=== PATIENT | male | born 1955 | race Hispanic/Latino ===

== ENCOUNTER 2017-01-10 08:52 | Outpatient (CLI) | payer BC ==
[2017-01-10 10:09] LABS: #Basophils 0.1 thou/uL (0.0-0.2); #Eosinphils 0.5 thou/uL (0.0-0.7); #Lymphocytes 1.9 thou/uL (1.20-3.40); #Monocytes 0.3 thou/uL (0.11-0.59); %Basophils 1.5 % (0.0-1.0); %Eosinophils 8.5 % (0.0-10.0); %Lymphocytes 32.4 % (21.0-51.0); %Monocytes 5.7 % (0.0-10.0); Hematocrit 46.9 % (42.0-52.0); Mean Platelet Volume 7.4 fL (7.4-10.4); Red Blood Cell (RBC) Count 4.85 mill/uL (4.70-6.10); White Blood Cell (WBC) Count 5.8 thou/uL (4.8-10.8)
[2017-01-10 10:15] LABS: Prothrombin Time 12.6 SEC (12.0-14.7)
[2017-01-10 10:28] LABS: Anion Gap 13 mmol/L (10-20); BUN (Urea Nitrogen) 17 mg/dL (8.4-25.7); Calc. Creatinine Clearance 0 mL/min (70-130); Calcium 9.1 mg/dL (7.8-10.44); Carbon Dioxide 24 mmol/L (22-29); Chloride 106 mmol/L (98-107); Estimated GFR-MDRD Greater than 90
--- NOTE | 2017-01-11 10:01 | EKG ---
Test Reason : PREOP Blood Pressure : / mmHG Vent. Rate : 058 BPM Atrial Rate : 058 BPM P-R Int : 170 ms QRS Dur : 080 ms QT Int : 416 ms P-R-T Axes : 058 -01 -03 degrees QTc Int : 408 ms Sinus bradycardia Minimal voltage criteria for LVH, may be normal variant Borderline ECG When compared with ECG of 20-FEB-2016 11:09, No significant change was found Confirmed by OSWALD SCHAEFER ([id number]) on 01/11/2017 10:00:35 AM Referred By: PARAMJIT Confirmed By:OSWALD SCHAFEER
== END 2017-01-10 08:53 | disposition home or self-care (01) ==
LOC: LABBT 08:52
PROVIDERS: ATTEND Orthopaedic Surgery
DX: Z01.818 Encounter for other preprocedural examination (principal); M25.511 Pain in right shoulder; Z96.611 Presence of right artificial shoulder joint
CPT/HCPCS: 80048; 85025; 85610; 87081; 93005; 93010

== ENCOUNTER 2017-01-13 14:00 | Inpatient (IN) | payer BC ==
[2017-01-10 09:33] VITALS: BMI 28.0
[2017-01-20] MEDS ORDERED: Midazolam HCl 2 mg/2 ml Vial ONE (07:54)
[2017-01-20] MEDS ORDERED: Fentanyl 100 MCG/2 ML VIAL ONE ×2 (07:54→08:55)
[2017-01-20] MEDS ORDERED: Sodium Chloride 0.9% 100 ML ONE (08:01)
[2017-01-20] MEDS ORDERED: Tobramycin Sulfate 1.2 GM VIAL ONE (08:51)
[2017-01-20] MEDS ORDERED: Bisacodyl 5 MG TAB PO PRN (09:15)
[2017-01-20] MEDS ORDERED: Ondansetron ODT 4 MG TAB PO PRN (09:15)
[2017-01-20] MEDS ORDERED: HYDROcodone/Acetaminophen 10/325 mg Tablet PO PRN (09:15)
[2017-01-20] MEDS ORDERED: Zolpidem Tartrate 5 MG TAB PO PRN (09:15)
[2017-01-20] MEDS ORDERED: Ondansetron HCl/PF 4 MG/2 ML Vial ONE (09:24)
[2017-01-20] MEDS ORDERED: Propofol 200 MG/20 ML VIAL ONE (09:24)
[2017-01-20] MEDS ORDERED: ePHEDrine/0.9% NaCl/PF SYRINGE 50 mg/10 ml ONE (09:24)
[2017-01-20] MEDS ORDERED: Lidocaine 2% PF 10 ML AMP (For Epidural Use) ONE (09:24)
[2017-01-20] MEDS ORDERED: Ketorolac Tromethamine 30 MG/ML VIAL ONE (09:24)
[2017-01-20] MEDS ORDERED: Glycopyrrolate 0.2 MG/ML 5 ML SYRINGE ONE (09:24)
[2017-01-20] MEDS ORDERED: Enoxaparin Sodium 40 MG/0.4 ML SYRINGE SC SCH (09:39)
[2017-01-20] MEDS ORDERED: Vancomycin HCl 1.5 GM in Sodium Chloride 0.9% 250 ML 300 ML IVPB STA (09:43)
[2017-01-20] MEDS ORDERED: Levofloxacin 500 mg/D5W 100 ml Premix Bag ONE (09:43)
[2017-01-20] MEDS ORDERED: SUGAMMADEX SODIUM 500 MG/5 ML VIAL ONE (11:10)
--- NOTE | 2017-01-20 13:23 | OP ---
PREOPERATIVE DIAGNOSIS: Failed right total shoulder. POSTOPERATIVE DIAGNOSIS: Failed right total shoulder. PROCEDURE: Revision total shoulder using a 29-mm threaded baseplate, 29 mm x 22 mm locking screws w ith 36 mm lateralized sphere, and a 9 mm metaphyseal spacer on the humeral side, +6 polyethylene on the humeral side. SURGEON: Audie Abebe M.D. [employer] MACHINE OPERATOR: Quirino Bonds PA-C. BLOOD LOSS: 200 mL SPECIMEN: Cultures and white blood cells per high power field. Frozen section culture showed no white blood cells per high power field during the procedure. DRAIN: None. COMPLICATIONS: None. DESCRIPTION OF PROCEDURE: The patient was placed in a beach chair position, prepped and draped in s terile fashion. No antibiotics were given preoperatively. I made a standard deltopectoral approach . Dissection was carried down to the joint capsule and divided the subscapularis. I took synovial tissue from around the glenosphere and around the humeral implant for frozen section, and report was as was described above. I removed the polyethylene, I removed the glenosphere, and then I removed the baseplate with some difficulty after some metallosis, which was removed. I cleaned the remainin g glenoid, which was somewhat deficient. I removed any metallosis and debris and cleaned out the os teolytic pockets. Irrigation was performed. I packed these with bone graft. I placed the glenosph ere or threaded baseplate and got excellent purchase on bicortical fixation. I used additional 2 lo cking screws for additional fixation. I used a lateralized sphere and went up to a size 15 overall spacer for stability sake, and I used a retentive poly for stability. Trials showed good stability throughout range of motion. Trials were removed. Permanent implants were impacted into place. Gle nosphere was deployed without difficulty with good fixation of the metaphyseal fragment; pieces were impacted and screwed down appropriately for the metaphysis, and the poly was impacted into place. Shoulder was reduced and irrigation was performed. Deltopectoral was closed with 0 Vicryl, subcutan eous 2-0 Vicryl, and the skin was closed with kirk. Sterile dressings applied. There were no co mplications.
[2017-01-20] MEDS: Sodium Chloride 0.9% 1,000 ML IV SCH (15:43)
[2017-01-20] MEDS: CeleCOXIB 100 MG CAP PO SCH (20:16)
[2017-01-20] MEDS ORDERED: Vancomycin HCl 1.5 GM in Sodium Chloride 0.9% 250 ML 300 ML IVPB SCH (22:00)
[2017-01-21] MEDS: HYDROcodone/Acetaminophen 10/325 mg Tablet PO PRN ×3 (02:10→10:12)
[2017-01-21] MEDS: Sodium Chloride 0.9% 1,000 ML IV SCH (02:27)
[2017-01-21] MEDS: CeleCOXIB 100 MG CAP PO SCH (08:35)
[2017-01-21 11:57] VITALS: BP 148/84; TEMP 97.7
== END 2017-01-21 12:34 | disposition home or self-care (01) | DRG 483 ==
LOC: SURG A 01-20 06:20 → SURG B 01-20 13:03
PROVIDERS: ADMIT Orthopaedic Surgery; ATTEND Orthopaedic Surgery
PROC: 0RRJ0JZ Replacement of Right Shoulder Joint with Synthetic Substitute, Open Approach (ICD-10-PCS; principal; 2017-01-20)
PROC: 0RPJ0JZ Removal of Synthetic Substitute from Right Shoulder Joint, Open Approach (ICD-10-PCS; 2017-01-20)
PROC: 3E0T3BZ Introduction of Anesthetic Agent into Peripheral Nerves and Plexi, Percutaneous Approach (ICD-10-PCS; 2017-01-20)
DX: T84.098A Other mechanical complication of other internal joint prosthesis, initial encounter (principal); Z96.651 Presence of right artificial knee joint; M48.061 Spinal stenosis, lumbar region without neurogenic claudication
CPT/HCPCS: 87070; 87205; 88305; 88331; C1713; J1885; J1956; J2001; J2250; J2405; J2704; J3010; J3260; J3370; J7050

== ENCOUNTER 2017-01-17 10:36 | Outpatient (CLI) | payer BC | END 2017-01-17 10:37 | disposition home or self-care (01) | LOC: LABBT 10:36 | PROVIDERS: ATTEND Orthopaedic Surgery | DX: Z01.818 Encounter for other preprocedural examination (principal); T84.84XA Pain due to internal orthopedic prosthetic devices, implants and grafts, initial encounter; Z96.611 Presence of right artificial shoulder joint | CPT/HCPCS: 86850; 86900; 86901 ==

== ENCOUNTER 2017-03-28 06:50 | Day surgery (SDC) | payer BC ==
[2017-03-25 09:20] VITALS: BMI 26.6
[~2017-03-28 06:50] MED LIST: FLU VACC QS2017-18 36 mo. & older 0.5 ML SYRINGE IM ONE
[2017-03-28 07:55] VITALS: BP 136/68; TEMP 97.7
--- NOTE | 2017-03-28 12:07 | RAD ---
FLUOROSCOPIC GUIDED LUMBAR MYELOGRAM: 03/28/2017 HISTORY: Patient with a history of low back surgery and now has low back pain and left lower extremity numbnes s. FLUOROSCOPY TIME: 0.8 minutes TOTAL DOSE: 137.7 mGy per M2. TECHNIQUE: After informed consent was obtained, the patient was placed on the fluoroscopy table in the prone pos ition. An area overlying the L3-L4 level was marked and then meticulously prepped and draped in the usual sterile fashion. The skin and subcutaneous tissues were infiltrated with buffered 1% Lidocaine for local anesthesia. A 22 gauge needle was then advanced under fluoroscopic guidance. The inner s tylet was removed, and return of clear cerebrospinal fluid was noted. Approximately 8 mL of Isovue M200 was instilled into the thecal sac. The inner stylet was replaced, and the needle was removed. A dry, sterile dressing was placed. The patient was transported to the CT scanner for further imaging. The patient tolerated the procedure well and without immediate complication. The patient was transpo rted to the nurses' holding area for further monitoring prior to discharge. FINDINGS: A lumbar myelogram was successfully performed utilizing fluoroscopic guidance, with puncture at the L 3-L4 level. Approximately 8 mL of Isovue M200 was instilled into the thecal sac. There are post surgical changes related to posterior fusion of the L3 through L5 levels, with unilate ral right-sided pedicular screws in the L3, L4, and L5 vertebral bodies, transfixed by a posterior ro d. Intradiskal prostheses are present at these levels. No obvious hardware complication is evident. There are prominent degenerative changes seen at these levels. There is grade 1 anterolisthesis of L3 on L4 with trace anterolisthesis of L4 on L5. Multilevel osteophytes are present. There is narr owing of the L5-S1 intervertebral disk space. IMPRESSION: 1. Technically successful lumbar myelogram. Please see CT examination performed after this exam for further details. 2. Post surgical changes related to posterior fusion of the L3 through L5 levels, with laminectomy d efects present at these levels. 3. Multilevel degenerative changes. POS: MANDEEP
--- NOTE | 2017-03-28 12:59 | CT ---
CT LUMBAR SPINE POST MYELOGRAM: DATE: 03/28/17. HISTORY: Lumbar radiculopathy. The patient states low back pain with left lower extremity numbness and weakne ss. COMPARISON: CT lumbar spine obtained from [facility] on 08/13/16. FINDINGS: Again noted are postsurgical changes of the lower lumbar spine related to posterior fusion of the L3 through L5 levels. Unilateral right-sided pedicular screws are again seen in L3, L4, and L5 vertebra l bodies transfixed by a posterior raymundo. Intradiskal prostheses are present at these levels. Again no pascual is minimal lucency surrounding the right-sided pedicular screw in L5. No additional hardware com plication is seen. There is stable slight grade I anterolisthesis of L4 on L5 with stable trace ante rolisthesis of L3 on L4. Vertebral body heights are within normal limits. No fracture or new level of subluxation is seen. L1-2 level: Minimal disk-osteophyte complex is present. The central spinal canal and neural foramin a remain patent. L2-3 level: There is a broad-based disk-osteophyte complex with facet hypertrophic changes again not ed. There is mild ligamentous thickening. These findings result in mild to moderate narrowing of th e central spinal canal with mild to moderate left and mild right-sided neural foraminal narrowing. L3-4 level: Intradiskal prosthesis is present at this level. Laminectomy defect is noted posteriorl y. Prominent facet hypertrophic changes are noted, although there is intradiskal prosthesis at this level, there does appear to be disk-osteophyte complex posteriorly. There is generalized mild to mod erate narrowing of the central spinal canal similar to the prior examination. There is moderate bila teral neural foraminal narrowing. There is soft tissue density seen posterior to this level likely r elated to scarring also with this area of soft tissue density abutting the lateral aspect of the thec al sac on the right which also may be related to mild scarring in this region. L4-5 level: There is a broad-based disk-osteophyte complex with prominent facet hypertrophic changes and ligamentous thickening. These findings result in mild to moderate narrowing of the central spin al canal. There is severe right and moderate left-sided neural foraminal narrowing. The severe righ t-sided neural foraminal narrowing is primarily secondary to facet hypertrophic change as well as pos terior osteophyte formation on the right. L5-S1 level: There is loss of intervertebral disk height with vacuum phenomenon in the intervertebra l disk. There is a mild broad-based disk-osteophyte complex. This results in slight effacement of t he anterior aspect of the thecal sac. There is probably trace retrolisthesis of L5 on S1. Findings result in moderate bilateral neural foraminal narrowing. IMPRESSION: 1. Postsurgical changes in the lumbar spine related to posterior fusion of L3 through L5. There is lucency surrounding the pedicular screw in the L5 vertebral body suggesting hardware loosening. 2. Slight grade I anterolisthesis of L3 on L4 and to a greater extent at L4-5 level with slight retr olisthesis of L5 on S1. 3. Multilevel degenerative changes with varying degrees of central canal and neural foraminal narrow ing as described above which have progressed when compared to a noncontrasted CT of the lumbar spine obtained at [facility] [place] 08[place]13/16. POS: MANDEEP
[2017-03-28] MEDS ORDERED: ISOVUE-370 76%-LOCM 1 ML ONE (17:18)
[2017-03-28] MEDS ORDERED: Iopamidol-M 200 41% 20 ML VIAL ONE (17:27)
== END 2017-03-28 10:40 | disposition home or self-care (01) ==
LOC: RAD 06:50
PROVIDERS: ATTEND Neurological Surgery
PROC: B01BYZZ Fluoroscopy of Spinal Cord using Other Contrast (ICD-10-PCS; principal; 2017-03-28)
DX: M54.16 Radiculopathy, lumbar region (principal); Z91.048 Other nonmedicinal substance allergy status; Z96.7 Presence of other bone and tendon implants; Z96.653 Presence of artificial knee joint, bilateral; Z98.890 Other specified postprocedural states; Z86.19 Personal history of other infectious and parasitic diseases
CPT/HCPCS: 62304; 72132

== ENCOUNTER 2019-09-19 08:30 | Outpatient (CLI) | payer MEDICARE ==
--- NOTE | 2019-09-19 10:27 | MRI ---
MRI CERVICAL SPINE WITHOUT CONTRAST: INDICATION: Cervical radiculopathy. FINDINGS: The cervical vertebrae maintain height and alignment. Vertebral body signal is normal. There are mi ld degenerative osteophytes from the cervical vertebrae. Degenerative disk changes are most prominen t at C5-6 and C6-7 with disk space loss and anterior osteophytes. Findings at each level are noted. No significant disk bulge or spondylosis is seen at C2-3 or C3-4. At C4-5, mild posterior spondylosis mildly effaces the anterior subarachnoid space. No central canal or foraminal stenosis. At C5-6, posterior spondylitic change impinges on the anterior cord centrally and to the left produci ng slight flattening and cord compression. Bilateral foraminal narrowing due to facet and uncinate h ypertrophy. At C6-7, posterior disk bulge and spondylosis efface the anterior subarachnoid space. Mild bilateral foraminal narrowing due to uncinate hypertrophy. C7-T1: No significant disk bulge or spondylosis. Cord signal appears normally preserved. IMPRESSION: 1. Posterior disk bulge and spondylitic changed are prominent at C5-6. These changes compress the c ord centrally and to the left of midline. Bilateral foraminal encroachment due to facet and uncinate hypertrophy. 2. Posterior spondylosis at C6-7 flattens the thecal sac and effaces the anterior subarachnoid space . There is bilateral foraminal narrowing more prominent on the left due to uncinate hypertrophy at t his level. POS: AGW
== END 2019-09-19 08:31 | disposition home or self-care (01) ==
LOC: TBSIIMAG 08:30
PROVIDERS: ATTEND Neurological Surgery
DX: M47.22 Other spondylosis with radiculopathy, cervical region (principal); M54.12 Radiculopathy, cervical region; M48.02 Spinal stenosis, cervical region
CPT/HCPCS: 72141

== ENCOUNTER 2020-08-08 06:48 | Day surgery (SDC) | payer MEDICARE ==
[2020-08-06 15:07] VITALS: BMI 29.5
[2020-08-08 07:38] VITALS: BP 115/76; TEMP 99.1
[2020-08-08] MEDS ORDERED: Iopamidol-M 200 41% 20 ML VIAL ONE (12:39)
== END 2020-08-08 09:28 | disposition home or self-care (01) ==
LOC: RAD 06:48
PROVIDERS: ATTEND Neurological Surgery
PROC: B01B1ZZ Fluoroscopy of Spinal Cord using Low Osmolar Contrast (ICD-10-PCS; principal; 2020-08-08)
DX: M47.26 Other spondylosis with radiculopathy, lumbar region (principal); M47.16 Other spondylosis with myelopathy, lumbar region; M51.06 Intervertebral disc disorders with myelopathy, lumbar region; M51.16 Intervertebral disc disorders with radiculopathy, lumbar region; M48.061 Spinal stenosis, lumbar region without neurogenic claudication; I10 Essential (primary) hypertension; M19.90 Unspecified osteoarthritis, unspecified site; Z79.899 Other long term (current) drug therapy; Z91.048 Other nonmedicinal substance allergy status; Z98.1 Arthrodesis status
CPT/HCPCS: 62304; 72132; Q9966

== ENCOUNTER 2020-08-19 13:34 | Emergency (ER) | payer MEDICARE ==
[~2020-08-19 13:34] MED LIST changes: -FLU VACC QS2017-18 36 mo. & older 0.5 ML SYRINGE IM ONE; +Magnevist 469MG/ML 20 ML VIAL ONE
[2020-08-19 16:10] LABS: Bacteria/HPF None Seen HPF (None Seen); Bilirubin Negative (Negative); Blood, Urine 2+ (Negative); Clarity Clear (Clear); Glucose, Urine (Dipstick) Normal (Negative); Ketone, Urine Negative (Negative); Leukocyte Negative Leu/uL (Negative); Nitrite Negative (Negative); Protein, Urine (Dipstick) Negative (Neg-Trace); Specific Gravity, Urine 1.017 (1.002-1.036); Squamous Epithelial 0-3 HPF (0-3); Urobilinogen Normal mg/dL (Less than 2); WBC/HPF 0-3 HPF (0-3)
== END 2020-08-19 17:48 | disposition home or self-care (01) ==
LOC: ERS 13:34
DX: M62.81 Muscle weakness (generalized) (principal); I10 Essential (primary) hypertension; Z79.899 Other long term (current) drug therapy
CPT/HCPCS: 72158; 81003; 81015; A9579

== ENCOUNTER 2020-08-21 14:37 | Outpatient (CLI) | payer MEDICARE ==
[2020-08-21 17:32] LABS: Hemoglobin 14.3 g/dL (13.5-17.5); Mean Corpuscular HGB CONC 32.2 g/dL (32.0-36.0); Mean Corpuscular Hemoglobin 30.1 pg (27.0-33.0); Mean Corpuscular Volume 93.5 fl (81.2-95.1); Mean Platelet Volume 9.9 fl (7.4-10.4); Platelet Count 297 10x3/uL (150-450); RBC Distribution Width 13.6 % (11.5-14.5); Red Blood Cell (RBC) Count 4.75 10x6/uL (4.32-5.72); White Blood Cell (WBC) Count 8.8 10x3/uL (3.5-10.5)
[2020-08-21 17:34] LABS: Anion Gap 17 mmol/L (10-20); BUN (Urea Nitrogen) 27 mg/dL (8.4-25.7); Calc. Creatinine Clearance 0 mL/min (70-130); Calcium 9.3 mg/dL (7.8-10.44); Carbon Dioxide 25 mmol/L (23-31); Chloride 102 mmol/L (98-107); Glucose 94 mg/dL (80-115); Potassium 3.7 mmol/L (3.5-5.1); Sodium 140 mmol/L (136-145)
[2020-08-22 01:52] LABS: SARS-CoV-2 PCR by NAA Not Detected (NotDetected)
== END 2020-08-21 14:38 | disposition home or self-care (01) ==
LOC: LABBT 14:37
PROVIDERS: ATTEND Neurological Surgery
DX: Z01.818 Encounter for other preprocedural examination (principal); Z20.822 Contact with and (suspected) exposure to COVID-19; M54.16 Radiculopathy, lumbar region
CPT/HCPCS: 80048; 85027; 93005; U0003; U0005; 87635; 93010

== ENCOUNTER 2020-08-25 07:23 | Observation (INO) | payer MEDICARE ==
[2020-08-22 11:39] VITALS: BMI 29.5
[2020-08-25] MEDS ORDERED: Fentanyl 250 MCG/5 ML VIAL ONE (11:38)
[2020-08-25] MEDS ORDERED: Ondansetron PF 4 MG/2 ML Vial ONE (11:50)
[2020-08-25] MEDS ORDERED: Glycopyrrolate 0.2 MG/ML 5 ML SYRINGE ONE (11:50)
[2020-08-25] MEDS ORDERED: Lidocaine 1% PF 5 ML VIAL ONE (11:50)
[2020-08-25] MEDS ORDERED: PROPOFOL 200 MG/20 ML VIAL ONE (11:50)
[2020-08-25] MEDS ORDERED: PHENYLEPHRINE-NS 100 MCG/ML 10 ML SYRINGE ONE (11:50)
[2020-08-25] MEDS ORDERED: Dexamethasone 20 MG/5 ML VIAL ONE (11:50)
[2020-08-25] MEDS ORDERED: Rocuronium Bromide 10 MG/ML (10ML VIAL) ONE (11:50)
[2020-08-25] MEDS ORDERED: Fentanyl 100 MCG/2 ML VIAL ONE ×3 (13:48→16:59)
[2020-08-25] MEDS ORDERED: tiZANidine HCl 4 MG TAB ONE (15:38)
[2020-08-25] MEDS ORDERED: HYDROcodone/Acetaminophen 10/325 mg Tablet PO PRN ×2 (17:30)
[2020-08-25] MEDS ORDERED: diphenhydrAMINE 25 MG CAP PO PRN (17:30)
[2020-08-25] MEDS ORDERED: tiZANidine HCl 4 MG TAB PO PRN (17:30)
[2020-08-25] MEDS ORDERED: Promethazine HCl 12.5 MG SUPP PR PRN (17:30)
[2020-08-25] MEDS ORDERED: Morphine 2 MG/ML VIAL SLOW IVP PRN (17:30)
[2020-08-25] MEDS ORDERED: Promethazine HCl 25 MG/ML VIAL IM PRN (17:30)
[2020-08-25] MEDS ORDERED: Acetaminophen/Codeine 30-300mg Tablet PO PRN ×2 (17:30)
[2020-08-25] MEDS ORDERED: diphenhydrAMINE 50 MG/ML VIAL IVP PRN (17:30)
[2020-08-25] MEDS ORDERED: Ondansetron PF 4 MG/2 ML Vial IM PRN (17:30)
[2020-08-25] MEDS ORDERED: Milk Of Magnesia 30 ML UDCUP PO PRN (17:30)
[2020-08-25] MEDS ORDERED: Mag-Al 1200 mg/1200 mg/30 ML UDCUP PO PRN (17:30)
[2020-08-25] MEDS ORDERED: traMADol HCl 50 MG TAB PO PRN (17:30)
[2020-08-25] MEDS ORDERED: Promethazine 25 MG TAB PO PRN (17:30)
[2020-08-25] MEDS ORDERED: CEFAZOLIN 2 GM in Premix Bag 1 BAG IVPB SCH (18:00)
[2020-08-25] MEDS: Sodium Chloride 0.9% 1,000 ML IV SCH (19:47)
[2020-08-25] MEDS: CEFAZOLIN 2 GM in Premix Bag 1 BAG IVPB SCH (20:04)
[2020-08-25] MEDS: traMADol HCl 50 MG TAB PO PRN (21:17)
[2020-08-25] MEDS: Morphine 4 MG/ML VIAL SLOW IVP PRN (22:09)
[2020-08-26] MEDS: CEFAZOLIN 2 GM in Premix Bag 1 BAG IVPB SCH (03:18)
[2020-08-26] MEDS: traMADol HCl 50 MG TAB PO PRN (03:20)
[2020-08-26] MEDS: Sodium Chloride 0.9% 1,000 ML IV SCH (05:18)
[2020-08-26] MEDS: Morphine 4 MG/ML VIAL SLOW IVP PRN (08:39)
[2020-08-26 08:48] VITALS: BP 105/70; TEMP 97.7
== END 2020-08-26 11:47 | disposition home or self-care (01) ==
LOC: SDC 07:23 → SURG B 13:41
PROVIDERS: ADMIT Neurological Surgery; ATTEND Neurological Surgery
PROC: 0QJY0ZZ Inspection of Lower Bone, Open Approach (ICD-10-PCS; principal; 2020-08-25)
PROC: 0SG0071 Fusion of Lumbar Vertebral Joint with Autologous Tissue Substitute, Posterior Approach, Posterior Column, Open Approach (ICD-10-PCS; 2020-08-25)
PROC: 0ST20ZZ Resection of Lumbar Vertebral Disc, Open Approach (ICD-10-PCS; 2020-08-25)
DX: M51.16 Intervertebral disc disorders with radiculopathy, lumbar region (principal); M47.26 Other spondylosis with radiculopathy, lumbar region; M47.16 Other spondylosis with myelopathy, lumbar region; M51.06 Intervertebral disc disorders with myelopathy, lumbar region; M48.061 Spinal stenosis, lumbar region without neurogenic claudication; M19.90 Unspecified osteoarthritis, unspecified site; I10 Essential (primary) hypertension; Z79.899 Other long term (current) drug therapy; Z91.048 Other nonmedicinal substance allergy status; Z98.1 Arthrodesis status
CPT/HCPCS: 20930; 20936; 22633; 22830; 22840; 76000; 96374; 96375; 96376; 97116; 97139; C1713 ×3; C1768; G0378 ×2; J0690; J1100; J2270; J2405; J2704; J3010; J3370; J3490

== ENCOUNTER 2020-09-11 09:30 | Outpatient (CLI) | payer MEDICARE | END 2020-09-11 09:31 | disposition home or self-care (01) | LOC: TBSIIMAG 09:30 | PROVIDERS: ATTEND Neurological Surgery | DX: M47.26 Other spondylosis with radiculopathy, lumbar region (principal); Z98.890 Other specified postprocedural states | CPT/HCPCS: 72100 ==

== ENCOUNTER 2025-01-10 08:48 | Outpatient (CLI) | payer OTHER | END 2025-01-10 08:49 | disposition home or self-care (01) | LOC: BICCT 08:48 | PROVIDERS: ATTEND Student in an Organized Health Care Education/Training Program | DX: T84.84XA Pain due to internal orthopedic prosthetic devices, implants and grafts, initial encounter (principal); Z96.611 Presence of right artificial shoulder joint ==